=== PATIENT | female | born 1960 | race African-American/Black ===

== ENCOUNTER 2020-06-29 14:27 | Inpatient (IN) | payer BC, OTHER ==
[2020-06-29 16:02] LABS: BASO % 0.2 % (0-2.0); HEMATOCRIT 36.7 % (32.4-45.2); HEMOGLOBIN 11.5 GM/dL (10.7-15.3); LYMPH % 3.9 % (8-40); MCHC 31.3 g/dl (32.0-36.0); MEAN CELL VOLUME 63.7 fl (80-96); MEAN PLT VOLUME 8.4 fl (7.5-11.1); MONO % 14.7 % (3.8-10.2); NEUT % 81.2 % (42.8-82.8); PLATELET COUNT 335 K/MM3 (134-434); RBC 5.76 M/mm3 (3.60-5.2); RDW 19.5 % (11.6-15.6); WHITE BLOOD COUNT 7.9 K/mm3 (4.0-10.0)
[2020-06-29 16:18] LABS: INR 1.06 (0.83-1.09)
[2020-06-29] MEDS ORDERED: diphenhydrAMINE HCL 25 MG CAPSULE (FP) PO ONE ×2 (16:23→17:31)
[2020-06-29 16:26] LABS: MCH 19.9 pg (25.7-33.7)
[2020-06-29 16:40] LABS: CHLORIDE 97 mmol/L (98-107); SODIUM 128 mmol/L (136-145)
[2020-06-29 16:43] LABS: ALBUMIN 2.6 g/dl (3.4-5.0); BLOOD UREA NITROGEN 40.2 mg/dL (7-18); CALCIUM 8.9 mg/dL (8.5-10.1); CO2 25 mmol/L (21-32)
[2020-06-29 16:44] LABS: GLUCOSE,RANDOM 158 mg/dL (74-106); MAGNESIUM 2.5 mg/dL (1.8-2.4)
[2020-06-29 16:46] LABS: BILIRUBIN,DIRECT < 0.1 mg/dL (0.0-0.2); CREATININE 1.3 mg/dL (0.55-1.3); PHOSPHOROUS 4.7 mg/dL (2.5-4.9); SGOT/AST 90 U/L (15-37)
[2020-06-29 16:48] LABS: TOT PROT 7.9 g/dl (6.4-8.2)
[2020-06-29 16:49] LABS: ALK PHOS 84 U/L (45-117); N-TERMINAL BNP 1413.4 pg/ml (5-125)
[2020-06-29 16:50] LABS: ANION GAP 6 MMOL/L (8-16); SGPT/ALT 22 U/L (13-61)
[2020-06-29 16:58] LABS: ANISOCYTOSIS 3+; MACROCYTOSIS 0; PLATELET ESTIMATE NORMAL; TARGET CELLS 1+
[2020-06-29 18:05] LABS: INR 1.17 (0.83-1.09); PROTHROMBIN TIME (PATIENT) 14.1 SEC (9.7-13.0)
[2020-06-29 18:07] LABS: ACTIVATED PTT 26.6 SECONDS (25.2-36.5)
[2020-06-29 18:22] LABS: CHLORIDE 99 mmol/L (98-107); SODIUM 137 mmol/L (136-145)
[2020-06-29 18:27] LABS: ALBUMIN 2.6 g/dl (3.4-5.0); ANION GAP 11 MMOL/L (8-16); BLOOD UREA NITROGEN 41.8 mg/dL (7-18); CO2 27 mmol/L (21-32); GLUCOSE,RANDOM 166 mg/dL (74-106); LIPASE 293 U/L (73-393); MAGNESIUM 2.2 mg/dL (1.8-2.4)
[2020-06-29 18:30] LABS: BILIRUBIN,DIRECT 0.8 mg/dL (0.0-0.2); CREATININE 1.3 mg/dL (0.55-1.3); PHOSPHOROUS 3.9 mg/dL (2.5-4.9); SGOT/AST 16 U/L (15-37); SGPT/ALT 18 U/L (13-61)
[2020-06-29 18:31] LABS: BILIRUBIN,TOTAL 1.3 mg/dL (0.2-1); TOT PROT 6.6 g/dl (6.4-8.2)
[2020-06-29 18:31] LABS: LACTIC ACID 2.4 mmol/L (0.4-2.0)
[2020-06-29 18:33] LABS: ALK PHOS 75 U/L (45-117); N-TERMINAL BNP 1489.1 pg/ml (5-125)
[2020-06-29 18:42] LABS: HIV INTERPRETATION NEGATIVE (NEGATIVE)
[2020-06-29 19:18] LABS: HIV INTERPRETATION NEGATIVE (NEGATIVE)
[2020-06-29] MEDS ORDERED: morphine CARPU-JECT 2 MG/1 ML DISP.SYRIN IVPUSH ONE (20:42)
[2020-06-29] MEDS ORDERED: MORPHINE SULFATE 2 MG/ML VIAL ONE (21:14)
[2020-06-30] MEDS ORDERED: morphine SULFATE 4 MG/ML VIAL IVPUSH ONE (06:05)
[2020-06-30] MEDS ORDERED: diphenhydrAMINE HCL 25 MG CAPSULE (FP) PO ONE (10:23)
[2020-06-30 11:40] LABS: BASO % 0.2 % (0-2.0); HEMATOCRIT 34.4 % (32.4-45.2); HEMOGLOBIN 10.5 GM/dL (10.7-15.3); LYMPH % 2.1 % (8-40); MCHC 30.4 g/dl (32.0-36.0); MEAN CELL VOLUME 63.2 fl (80-96); MEAN PLT VOLUME 8.7 fl (7.5-11.1); MONO % 13.4 % (3.8-10.2); NEUT % 84.3 % (42.8-82.8); PLATELET COUNT 405 K/MM3 (134-434); RBC 5.44 M/mm3 (3.60-5.2); RDW 18.8 % (11.6-15.6); WHITE BLOOD COUNT 9.5 K/mm3 (4.0-10.0)
[2020-06-30 11:44] LABS: MCH 19.2 pg (25.7-33.7)
[2020-06-30 11:57] LABS: CALCIUM 8.9 mg/dL (8.5-10.1)
[2020-06-30 11:57] LABS: CALCIUM 8.9 mg/dL (8.5-10.1)
[2020-06-30 11:58] LABS: ALBUMIN 2.3 g/dl (3.4-5.0); BLOOD UREA NITROGEN 45.7 mg/dL (7-18)
[2020-06-30 11:58] LABS: ALBUMIN 2.4 g/dl (3.4-5.0)
[2020-06-30 11:59] LABS: MAGNESIUM 2.3 mg/dL (1.8-2.4)
[2020-06-30 12:01] LABS: CREATININE 1.2 mg/dL (0.55-1.3)
[2020-06-30 12:02] LABS: BILIRUBIN,TOTAL 1.3 mg/dL (0.2-1); TOT PROT 5.9 g/dl (6.4-8.2)
[2020-06-30 12:02] LABS: BILIRUBIN,TOTAL 1.3 mg/dL (0.2-1)
[2020-06-30 12:08] LABS: CREATININE 1.3 mg/dL (0.55-1.3); PHOSPHOROUS 4.5 mg/dL (2.5-4.9)
[2020-06-30] MEDS ORDERED: traMADol HCL 50 MG TABLET PO PRN (13:45)
[2020-06-30] MEDS: ENOXAPARIN NA (PORCINE) 40 MG/0.4 ML DISP.SYRIN SQ SCH (14:45)
[2020-06-30] MEDS: morphine SULFATE 4 MG/ML VIAL IVPUSH PRN ×2 (15:11→21:07)
[2020-07-01] MEDS: morphine SULFATE 4 MG/ML VIAL IVPUSH PRN (04:46)
[2020-07-01 08:21] LABS: BASO % 0.1 % (0-2.0); EOS % 0.1 % (0-4.5); HEMATOCRIT 33.3 % (32.4-45.2); HEMOGLOBIN 10.3 GM/dL (10.7-15.3); LYMPH % 2.7 % (8-40); MCHC 30.9 g/dl (32.0-36.0); MEAN PLT VOLUME 8.4 fl (7.5-11.1); MONO % 12.7 % (3.8-10.2); NEUT % 84.4 % (42.8-82.8); PLATELET COUNT 391 K/MM3 (134-434); RBC 5.29 M/mm3 (3.60-5.2); RDW 19.3 % (11.6-15.6); WHITE BLOOD COUNT 10.4 K/mm3 (4.0-10.0)
[2020-07-01 08:23] LABS: MCH 19.4 pg (25.7-33.7)
[2020-07-01 08:44] LABS: ALBUMIN 2.2 g/dl (3.4-5.0); CALCIUM 8.8 mg/dL (8.5-10.1)
[2020-07-01 08:47] LABS: CREATININE 1.4 mg/dL (0.55-1.3)
[2020-07-01 08:48] LABS: BILIRUBIN,TOTAL 1.9 mg/dL (0.2-1); TOT PROT 5.9 g/dl (6.4-8.2)
[2020-07-01] MEDS ORDERED: morphine SULFATE 4 MG/ML VIAL IVPUSH ONE (08:56)
[2020-07-01] MEDS ORDERED: MORPHINE SULFATE 2 MG/ML VIAL IVPUSH ONE (09:15)
[2020-07-01] MEDS: ENOXAPARIN NA (PORCINE) 40 MG/0.4 ML DISP.SYRIN SQ SCH (09:45)
[2020-07-01 13:40] LABS: BF WBC & OTHER NUCLEATED CELLS 3042 /mm3
[2020-07-01 14:26] LABS: BODY FLUID MACROPHAGES 5 %
[2020-07-01] MEDS: MORPHINE SULFATE 2 MG/ML VIAL IVPUSH PRN (20:30)
[2020-07-01] MEDS: COLLAGENASE CLOSTRIDIUM HIST. 30 GRAMS TUBE TP SCH (20:31)
[2020-07-02] MEDS ORDERED: ACETAMINOPHEN 1000 MG/100 ML VIAL (NON FORMULARY) IVPB ONE (00:11)
[2020-07-02] MEDS ORDERED: MELATONIN 5 MG TABLETS PO ONE (00:30)
[2020-07-02] MEDS ORDERED: SODIUM CHLORIDE 500 ML IV STA (05:48)
[2020-07-02] MEDS: MORPHINE SULFATE 2 MG/ML VIAL IVPUSH PRN ×2 (06:28→17:10)
[2020-07-02 07:51] LABS: BASO % 0.1 % (0-2.0); HEMATOCRIT 33.2 % (32.4-45.2); HEMOGLOBIN 10.2 GM/dL (10.7-15.3); LYMPH % 3.7 % (8-40); MCHC 30.8 g/dl (32.0-36.0); MEAN CELL VOLUME 62.7 fl (80-96); MEAN PLT VOLUME 8.4 fl (7.5-11.1); MONO % 11.4 % (3.8-10.2); NEUT % 84.8 % (42.8-82.8); PLATELET COUNT 413 K/MM3 (134-434); RDW 19.3 % (11.6-15.6); WHITE BLOOD COUNT 10.2 K/mm3 (4.0-10.0)
[2020-07-02 07:56] LABS: MCH 19.3 pg (25.7-33.7)
[2020-07-02 08:07] LABS: CARCINOEMBRYONIC ANTIGEN 1.7 ng/mL (0.0-4.7)
[2020-07-02 08:54] LABS: CALCIUM 8.4 mg/dL (8.5-10.1)
[2020-07-02 08:56] LABS: ALBUMIN 1.8 g/dl (3.4-5.0); BLOOD UREA NITROGEN 62.8 mg/dL (7-18)
[2020-07-02 08:58] LABS: CREATININE 1.5 mg/dL (0.55-1.3)
[2020-07-02 08:59] LABS: BILIRUBIN,TOTAL 2.2 mg/dL (0.2-1)
[2020-07-02] MEDS ORDERED: PIPERACILLIN/TAZOB 4.5 GM 4.5 GM in DEXTROSE 5%-WATER 100 ML IVPB SCH (09:00)
[2020-07-02 09:01] LABS: TOT PROT 5.2 g/dl (6.4-8.2)
[2020-07-02] MEDS ORDERED: PIPERACILLIN/TAZOBACTAM 4.5 GM VIAL IVPB ONE (09:42)
[2020-07-02] MEDS ORDERED: DEXTROSE 5%-WATER 100 ML IVPB ONE (09:42)
[2020-07-02] MEDS: ENOXAPARIN NA (PORCINE) 40 MG/0.4 ML DISP.SYRIN SQ SCH (10:07)
[2020-07-02] MEDS: COLLAGENASE CLOSTRIDIUM HIST. 30 GRAMS TUBE TP SCH (10:08)
[2020-07-02] MEDS ORDERED: IRON SUCROSE INJECTION 200 MG in SODIUM CHLORIDE 90 ML IVPB ONE (15:28)
[2020-07-02] MEDS: SODIUM CHLORIDE 1,000 ML IV SCH (16:56)
[2020-07-02 17:39] LABS: EPI CELLS 10 /uL (0-25.1); HYALINE CASTS 7 /uL (0-3.1); URINE APPEARANCE CLOUDY; URINE BACTERIA 2024 /uL (0-1359); URINE BILIRUBIN 1+ (NEGATIVE); URINE COLOR DK YELLOW; URINE GLUCOSE (UA) NEGATIVE (NEGATIVE); URINE KETONE TRACE (NEGATIVE); URINE LEUK ESTERASE 1+ (NEGATIVE); URINE NITRITE NEGATIVE (NEGATIVE); URINE PROTEIN 1+ (NEGATIVE); URINE WBC 193 /uL (0-25.8)
[2020-07-02 17:40] LABS: URINE RBC 57.8 /uL (0-23.9)
[2020-07-02] MEDS ORDERED: PIPERACILLIN/TAZOBACTAM 3.375 GM VIAL IVPB ONE (17:46)
[2020-07-02] MEDS ORDERED: DEXTROSE 5%-WATER - 50 ML IVPB ONE (17:46)
[2020-07-02] MEDS: PIPERACILLIN/TAZOB 3.375 GM 3.375 GM in DEXTROSE 5%-WATER - 50 ML IVPB SCH (18:40)
[2020-07-03] MEDS ORDERED: PIPERACILLIN/TAZOBACTAM 3.375 GM VIAL IVPB ONE ×2 (01:31→10:42)
[2020-07-03] MEDS ORDERED: DEXTROSE 5%-WATER - 50 ML IVPB ONE ×2 (01:31→10:42)
[2020-07-03] MEDS: PIPERACILLIN/TAZOB 3.375 GM 3.375 GM in DEXTROSE 5%-WATER - 50 ML IVPB SCH ×2 (02:12→10:59)
[2020-07-03 08:52] LABS: BASO % 0.2 % (0-2.0); HEMATOCRIT 31.8 % (32.4-45.2); HEMOGLOBIN 9.8 GM/dL (10.7-15.3); LYMPH % 2.5 % (8-40); MCH 19.2 pg (25.7-33.7); MCHC 30.7 g/dl (32.0-36.0); MEAN CELL VOLUME 62.5 fl (80-96); MEAN PLT VOLUME 8.2 fl (7.5-11.1); MONO % 10.9 % (3.8-10.2); NEUT % 86.4 % (42.8-82.8); PLATELET COUNT 399 K/MM3 (134-434); RBC 5.09 M/mm3 (3.60-5.2); WHITE BLOOD COUNT 10.4 K/mm3 (4.0-10.0)
[2020-07-03] MEDS ORDERED: PIPERACILLIN/TAZOB 4.5 GM 4.5 GM in DEXTROSE 5%-WATER 100 ML IVPB SCH (09:00)
[2020-07-03 09:32] LABS: ALBUMIN 1.7 g/dl (3.4-5.0); ANISOCYTOSIS 2+; BLOOD UREA NITROGEN 52.6 mg/dL (7-18); CALCIUM 8.2 mg/dL (8.5-10.1); MACROCYTOSIS 0; PLATELET ESTIMATE NORMAL; ROULEAU 1+
[2020-07-03 09:36] LABS: CREATININE 1.1 mg/dL (0.55-1.3); TOT PROT 5.1 g/dl (6.4-8.2)
[2020-07-03] MEDS: COLLAGENASE CLOSTRIDIUM HIST. 30 GRAMS TUBE TP SCH (10:59)
[2020-07-03] MEDS: LACTOBACILLUS ACIDOPHILUS 1 TABLET PO SCH (11:43)
[2020-07-03 17:06] LABS: BODY FLUID ALBUMIN 2.5 g/dL (Not Estab.)
[2020-07-03] MEDS: CEFAZOLIN 2 GM/D5W 2 GM/50 ML ML IVPB SCH (17:11)
[2020-07-03] MEDS: MORPHINE SULFATE 2 MG/ML VIAL IVPUSH PRN (17:47)
[2020-07-03] MEDS: SODIUM CHLORIDE 1,000 ML IV SCH (18:36)
[2020-07-04] MEDS: MORPHINE SULFATE 2 MG/ML VIAL IVPUSH PRN (01:43)
[2020-07-04] MEDS: CEFAZOLIN 2 GM/D5W 2 GM/50 ML ML IVPB SCH ×3 (02:24→17:49)
[2020-07-04] MEDS ORDERED: ACETAMINOPHEN 1000 MG/100 ML VIAL (NON FORMULARY) IVPB ONE ×2 (04:48→20:14)
[2020-07-04] MEDS ORDERED: morphine SULFATE 4 MG/ML VIAL IVPUSH ONE ×2 (04:48→21:46)
[2020-07-04 08:32] LABS: BASO % 0.1 % (0-2.0); HEMATOCRIT 34.2 % (32.4-45.2); HEMOGLOBIN 10.3 GM/dL (10.7-15.3); LYMPH % 4.2 % (8-40); MCHC 30.2 g/dl (32.0-36.0); MEAN CELL VOLUME 63.4 fl (80-96); MEAN PLT VOLUME 7.3 fl (7.5-11.1); MONO % 9.2 % (3.8-10.2); NEUT % 86.5 % (42.8-82.8); PLATELET COUNT 455 K/MM3 (134-434); RDW 19.4 % (11.6-15.6); WHITE BLOOD COUNT 7.4 K/mm3 (4.0-10.0)
[2020-07-04 08:33] LABS: MCH 19.1 pg (25.7-33.7)
[2020-07-04] MEDS: LACTOBACILLUS ACIDOPHILUS 1 TABLET PO SCH (09:52)
[2020-07-04] MEDS: COLLAGENASE CLOSTRIDIUM HIST. 30 GRAMS TUBE TP SCH (09:53)
[2020-07-04] MEDS: ENOXAPARIN NA (PORCINE) 40 MG/0.4 ML DISP.SYRIN SQ SCH (10:51)
[2020-07-04 14:33] VITALS: BMI 32.3
[2020-07-04] MEDS: morphine SULFATE 4 MG/ML VIAL IVPUSH PRN (19:26)
[2020-07-05] MEDS: morphine SULFATE 4 MG/ML VIAL IVPUSH PRN ×4 (01:50→22:52)
[2020-07-05] MEDS: CEFAZOLIN 2 GM/D5W 2 GM/50 ML ML IVPB SCH ×3 (01:55→17:45)
[2020-07-05] MEDS ORDERED: morphine SULFATE 4 MG/ML VIAL IVPUSH ONE (05:26)
[2020-07-05] MEDS ORDERED: ACETAMINOPHEN 1000 MG/100 ML VIAL (NON FORMULARY) IVPB PRN (05:29)
[2020-07-05 09:01] LABS: BASO % 0.1 % (0-2.0); EOS % 0.2 % (0-4.5); HEMATOCRIT 34.2 % (32.4-45.2); HEMOGLOBIN 10.2 GM/dL (10.7-15.3); MCHC 29.9 g/dl (32.0-36.0); MEAN PLT VOLUME 7.7 fl (7.5-11.1); MONO % 8.9 % (3.8-10.2); NEUT % 86.8 % (42.8-82.8); PLATELET COUNT 408 K/MM3 (134-434); RBC 5.35 M/mm3 (3.60-5.2); RDW 19.4 % (11.6-15.6); WHITE BLOOD COUNT 9.5 K/mm3 (4.0-10.0)
[2020-07-05 09:06] LABS: MCH 19.2 pg (25.7-33.7)
[2020-07-05 09:29] LABS: ALBUMIN 1.9 g/dl (3.4-5.0); BLOOD UREA NITROGEN 34.8 mg/dL (7-18)
[2020-07-05 09:33] LABS: BILIRUBIN,TOTAL 0.5 mg/dL (0.2-1); TOT PROT 5.4 g/dl (6.4-8.2)
[2020-07-05] MEDS: LACTOBACILLUS ACIDOPHILUS 1 TABLET PO SCH (09:38)
[2020-07-05] MEDS: ENOXAPARIN NA (PORCINE) 40 MG/0.4 ML DISP.SYRIN SQ SCH (09:39)
[2020-07-05] MEDS: COLLAGENASE CLOSTRIDIUM HIST. 30 GRAMS TUBE TP SCH (09:40)
[2020-07-05] MEDS: HYDROmorphone HCl 2 MG/ML VIAL IVPB PRN ×2 (11:53→18:45)
[2020-07-05] MEDS ORDERED: PT OWN MED DRAWER 7, Y5N ONE (19:50)
[2020-07-05] MEDS ORDERED: DEXTROSE 5%-WATER - 1,000 ML IV SCH (20:00)
[2020-07-06] MEDS: HYDROmorphone HCl 2 MG/ML VIAL IVPB PRN ×4 (01:05→22:21)
[2020-07-06] MEDS: CEFAZOLIN 2 GM/D5W 2 GM/50 ML ML IVPB SCH ×2 (01:26→11:09)
[2020-07-06] MEDS: morphine SULFATE 4 MG/ML VIAL IVPUSH PRN ×3 (04:55→19:27)
[2020-07-06] MEDS: LACTOBACILLUS ACIDOPHILUS 1 TABLET PO SCH (09:56)
[2020-07-06] MEDS: ENOXAPARIN NA (PORCINE) 40 MG/0.4 ML DISP.SYRIN SQ SCH (10:02)
[2020-07-06] MEDS: AMINO ACIDS 4.25%/D5W 1,000 ML IV SCH (14:54)
[2020-07-06] MEDS ORDERED: DEXTROSE 5%-WATER - 50 ML IVPB ONE ×2 (15:43→19:21)
[2020-07-06] MEDS ORDERED: PIPERACILLIN/TAZOBACTAM 3.375 GM VIAL IVPB ONE ×2 (15:43→19:21)
[2020-07-06] MEDS: PIPERACILLIN/TAZOB 3.375 GM 3.375 GM in DEXTROSE 5%-WATER - 50 ML IVPB SCH ×2 (15:46→19:27)
[2020-07-06] MEDS: COLLAGENASE CLOSTRIDIUM HIST. 30 GRAMS TUBE TP SCH (16:30)
[2020-07-06] MEDS: ACETAMINOPHEN 1000 MG/100 ML VIAL (NON FORMULARY) IVPB PRN (18:49)
[2020-07-07] MEDS ORDERED: PIPERACILLIN/TAZOBACTAM 3.375 GM VIAL IVPB ONE ×3 (04:09→17:31)
[2020-07-07] MEDS ORDERED: DEXTROSE 5%-WATER - 50 ML IVPB ONE ×3 (04:09→17:32)
[2020-07-07] MEDS: PIPERACILLIN/TAZOB 3.375 GM 3.375 GM in DEXTROSE 5%-WATER - 50 ML IVPB SCH ×3 (04:19→17:40)
[2020-07-07] MEDS: morphine SULFATE 4 MG/ML VIAL IVPUSH PRN ×2 (05:17→12:24)
[2020-07-07] MEDS: ACETAMINOPHEN 1000 MG/100 ML VIAL (NON FORMULARY) IVPB PRN (05:18)
[2020-07-07 07:15] LABS: BASO % 0.1 % (0-2.0); EOS % 0.1 % (0-4.5); HEMATOCRIT 34.4 % (32.4-45.2); MCHC 28.9 g/dl (32.0-36.0); MEAN PLT VOLUME 8.8 fl (7.5-11.1); MONO % 6.2 % (3.8-10.2); NEUT % 89.6 % (42.8-82.8); PLATELET COUNT 334 K/MM3 (134-434); RDW 19.3 % (11.6-15.6); WHITE BLOOD COUNT 9.6 K/mm3 (4.0-10.0)
[2020-07-07 07:24] LABS: MCH 18.8 pg (25.7-33.7)
[2020-07-07 07:26] LABS: CHLORIDE 109 mmol/L (98-107); SODIUM 142 mmol/L (136-145)
[2020-07-07 07:35] LABS: ALBUMIN 1.9 g/dl (3.4-5.0); ANION GAP 6 MMOL/L (8-16); BLOOD UREA NITROGEN 43.6 mg/dL (7-18); CO2 28 mmol/L (21-32); GLUCOSE,RANDOM 174 mg/dL (74-106)
[2020-07-07 07:38] LABS: SGOT/AST 33 U/L (15-37)
[2020-07-07 07:39] LABS: CREATININE 1.4 mg/dL (0.55-1.3); SGPT/ALT < 6 U/L (13-61)
[2020-07-07 07:40] LABS: BILIRUBIN,TOTAL 1.1 mg/dL (0.2-1); TOT PROT 5.6 g/dl (6.4-8.2)
[2020-07-07 08:02] LABS: ALK PHOS 75 U/L (45-117)
[2020-07-07] MEDS: HYDROmorphone HCl 2 MG/ML VIAL IVPB PRN ×2 (08:23→21:32)
[2020-07-07] MEDS: LACTOBACILLUS ACIDOPHILUS 1 TABLET PO SCH ×2 (09:29→09:55)
[2020-07-07] MEDS: ENOXAPARIN NA (PORCINE) 40 MG/0.4 ML DISP.SYRIN SQ SCH (09:29)
[2020-07-07 11:32] LABS: ANISOCYTOSIS 1+
[2020-07-07 11:34] LABS: ROULEAU 1+
[2020-07-07] MEDS: COLLAGENASE CLOSTRIDIUM HIST. 30 GRAMS TUBE TP SCH (11:45)
[2020-07-07 12:39] LABS: BF WBC & OTHER NUCLEATED CELLS 4559 /mm3
[2020-07-07] MEDS: AMINO ACIDS 4.25%/D5W 1,000 ML IV SCH (16:55)
[2020-07-08] MEDS ORDERED: DEXTROSE 5%-WATER - 50 ML IVPB ONE ×2 (01:04→09:32)
[2020-07-08] MEDS ORDERED: PIPERACILLIN/TAZOBACTAM 3.375 GM VIAL IVPB ONE ×2 (01:04→09:32)
[2020-07-08] MEDS: PIPERACILLIN/TAZOB 3.375 GM 3.375 GM in DEXTROSE 5%-WATER - 50 ML IVPB SCH ×2 (01:09→09:45)
[2020-07-08] MEDS ORDERED: ACETAMINOPHEN 325 MG TABLET (FP) PO PRN (02:03)
[2020-07-08] MEDS: HYDROmorphone HCl 2 MG/ML VIAL IVPB PRN ×2 (04:48→11:32)
[2020-07-08 07:40] LABS: BASO % 0.1 % (0-2.0); EOS % 0.1 % (0-4.5); HEMATOCRIT 29.1 % (32.4-45.2); HEMOGLOBIN 8.6 GM/dL (10.7-15.3); LYMPH % 4.7 % (8-40); MCHC 29.5 g/dl (32.0-36.0); MEAN CELL VOLUME 65.1 fl (80-96); MEAN PLT VOLUME 8.1 fl (7.5-11.1); MONO % 6.5 % (3.8-10.2); NEUT % 88.6 % (42.8-82.8); PLATELET COUNT 324 K/MM3 (134-434); RBC 4.47 M/mm3 (3.60-5.2)
[2020-07-08 07:48] LABS: ALBUMIN 1.8 g/dl (3.4-5.0); BLOOD UREA NITROGEN 62.9 mg/dL (7-18)
[2020-07-08 07:49] LABS: CALCIUM 7.8 mg/dL (8.5-10.1)
[2020-07-08 07:52] LABS: CREATININE 1.6 mg/dL (0.55-1.3)
[2020-07-08 07:53] LABS: BILIRUBIN,TOTAL 0.6 mg/dL (0.2-1); TOT PROT 5.2 g/dl (6.4-8.2)
[2020-07-08 08:01] LABS: MCH 19.2 pg (25.7-33.7)
[2020-07-08 08:27] LABS: EPI CELLS >36 /uL (0-25.1); HYALINE CASTS 18 /uL (0-3.1); URINE APPEARANCE TURBID; URINE BACTERIA 18 /uL (0-1359); URINE BILIRUBIN NEGATIVE (NEGATIVE); URINE COLOR YELLOW; URINE GLUCOSE (UA) NEGATIVE (NEGATIVE); URINE KETONE NEGATIVE (NEGATIVE); URINE LEUK ESTERASE TRACE (NEGATIVE); URINE NITRITE NEGATIVE (NEGATIVE); URINE PROTEIN 1+ (NEGATIVE); URINE RBC 35 /uL (0-23.9); URINE UROBILINOGEN 0.2 mg/dL (0.2-1.0); URINE WBC 92 /uL (0-25.8)
[2020-07-08 09:33] LABS: BODY FLUID MACROPHAGES 10 %
[2020-07-08] MEDS: ENOXAPARIN NA (PORCINE) 40 MG/0.4 ML DISP.SYRIN SQ SCH (09:45)
[2020-07-08] MEDS: LACTOBACILLUS ACIDOPHILUS 1 TABLET PO SCH (09:45)
[2020-07-08] MEDS ORDERED: PT OWN MED DRAWER 7, Y5N ONE (10:44)
[2020-07-08] MEDS: morphine SULFATE 4 MG/ML VIAL IVPUSH PRN (10:44)
[2020-07-08] MEDS: COLLAGENASE CLOSTRIDIUM HIST. 30 GRAMS TUBE TP SCH (10:48)
[2020-07-08] MEDS ORDERED: SODIUM CHLORIDE 1,000 ML IV SCH (11:15)
[2020-07-08 12:47] LABS: URINE CRYSTALS MANY /hpf
[2020-07-08 15:37] VITALS: BP 106/56; PULSE 88; TEMP 99.1
[2020-07-09 16:08] LABS: BODY FLUID ALBUMIN 1.7 g/dL (Not Estab.)
== END 2020-07-08 16:25 | disposition home or self-care (01) | DRG 872 ==
LOC: JER 14:27 → JERBED 18:50 → J5S 06-30 04:43 → J5WEST-2 07-06 18:42 → J4W 07-06 19:10
PROVIDERS: ADMIT Hospitalist; ATTEND Internal Medicine
PROC: 0W9G3ZX Drainage of Peritoneal Cavity, Percutaneous Approach, Diagnostic (ICD-10-PCS; principal; 2020-07-01)
DX: A41.89 Other specified sepsis (principal); C56.9 Malignant neoplasm of unspecified ovary; J98.11 Atelectasis; R18.8 Other ascites; E87.2 Acidosis; L97.228 Non-pressure chronic ulcer of left calf with other specified severity; L97.218 Non-pressure chronic ulcer of right calf with other specified severity; R64 Cachexia; N17.9 Acute kidney failure, unspecified; I44.4 Left anterior fascicular block; D64.9 Anemia, unspecified; Z68.33 Body mass index [BMI] 33.0-33.9, adult; D50.9 Iron deficiency anemia, unspecified; E80.6 Other disorders of bilirubin metabolism; D72.829 Elevated white blood cell count, unspecified
CPT/HCPCS: 36415; 71045-TC-FY; 74018-TC-FY; 74177-TC; 76856-TC; 76942-TC; 80053; 80074; 81003; 82042; 82105; 82140; 82150; 82248; 82378; 82465; 82550; 82553; 82728; 82945; 82962; 83036; 83540; 83550; 83605; 83615; 83690; 83735; 83880; 83986; 84100; 84157; 84443; 84466; 84478; 84484; 85025; 85027; 85610; 85730; 86301; 86304; 86803; 87040; 87070; 87075; 87077; 87086; 87102; 87116; 87186; 87205; 87206; 87210; 87389; 88108; 88305-TC; 93005; 93010; 93306-TC; 93970-TC; 97116-GP; 97161-GP; 99285-25; C9803; J0131; J1756; Q9967; U0003; U0005